=== PATIENT | female | born 1965 | race Caucasian/White ===

== ENCOUNTER 2018-06-02 08:04 | Emergency (ER) | payer OTHER ==
[~2018-06-02] VITALS: Ht 170.2 cm; Wt 61.2 kg
== END 2018-06-02 11:47 | disposition home or self-care (01) ==
LOC: ER 08:04
DX: S92.411A Displaced fracture of proximal phalanx of right great toe, initial encounter for closed fracture (principal); W18.09XA Striking against other object with subsequent fall, initial encounter; Y93.02 Activity, running; Y92.838 Other recreation area as the place of occurrence of the external cause; Y99.8 Other external cause status